=== PATIENT | female | born 1980 | race Caucasian/White ===

== ENCOUNTER 2019-06-11 22:00 | Emergency (ER) | payer OTHER ==
[2019-06-11 22:19] VITALS: BP 117/68; PULSE 98; TEMP 97.8
[2019-06-11] MEDS ORDERED: SODIUM CHLORIDE 0.9% 1000 ML INFUS.BAG IV ONE (22:46)
[2019-06-11] MEDS ORDERED: FAMOTIDINE 20 MG/50 ML IVPB 20 MG/50 ML MG IVPB ONE ×2 (22:46→23:28)
[2019-06-11] MEDS ORDERED: ACETAMINOPHEN 1000 MG/100 ML VIAL (NON FORMULARY) IVPB ONE (22:46)
--- NOTE | 2019-06-11 22:50 | PDOC ---
Attending Attestation - Resident Resident Name: Douglas Magaña - ED Attending Attestation I have performed the following: I have examined & evaluated the patient, The case was reviewed & discussed with the resident, I agree w/resident's findings & plan - HPI HPI: 06/11/19 22:51 Pt comes with diffuse abd pain 06/11/19 23:22 Pt comes with 2 days of abd pin and feeling unwell. She says that all she ate was soup today. She has no fever and no ill contacts and no nausea and no vomiting and no dysuria, no diarrhea She has no fam hx of GB disease. She has 2 children. LMP was a couple weeks back - Physicial Exam PE: 06/11/19 23:20 Afebrile VSS HEENT ncat normal Heart RRR Lungs CTAb abd soft NT ND +bs no flank pain Neuro exam - Medical Decision Making 06/11/19 23:27 Labs and urine and sono and reeval. 06/11/19 23:46 UA normal WBC normal 06/12/19 01:12 Patient Name: FREDY DARLING THIS IS A PRELIMINARY REPORT FROM [facility] DATE OF SERVICE: 2019-06-11 23:44:07 IMAGES: 46 EXAM: ABDOMEN US -LIMITED HISTORY: 38-year-old female right upper quadrant abdominal pain positive Ayala sign COMPARISON: None. FINDINGS: No cholelithiasis or cholecystitis. Mild 17.9 cm hepatomegaly and mild coarse increased echogenicity in liver parenchyma consistent with mild steatosis. Common bile duct has a normal diameter of 5 mm. Pancreatic head appears unremarkable. Pancreatic tail is obscured by bowel gas. No right kidney nephrolithiasis or hydronephrosis. The aorta and inferior vena cava and main portal pain are patent. IMPRESSION: Mild hepatomegaly and steatosis. No cholelithiasis or cholecystitis. No right kidney nephrolithiasis or hydronephrosis 06/16/19 22:33 CBC, CMP, UA, U/S WNL. Pt states she feels better and has nontender abd exam. Will d/c with PCP f/u.
[2019-06-11 22:58] LABS: PH,URINE 5.5 (5.0-8.0); URINE APPEARANCE CLEAR; URINE BILIRUBIN NEGATIVE (NEGATIVE); URINE COLOR YELLOW; URINE GLUCOSE (UA) NEGATIVE (NEGATIVE); URINE KETONE NEGATIVE (NEGATIVE); URINE LEUK ESTERASE NEGATIVE (NEGATIVE); URINE NITRITE NEGATIVE (NEGATIVE); URINE PROTEIN NEGATIVE (NEGATIVE); URINE UROBILINOGEN 0.2 mg/dL (0.2-1.0)
[2019-06-11] MEDS ORDERED: ACETAMINOPHEN INJECTION 100 ML IVPB ONE (23:01)
--- NOTE | 2019-06-11 23:03 | PDOC ---
History of Present Illness <Adali Rollins - Last Filed: 06/12/19 01:14> - General History Source: Patient Exam Limitations: Language Barrier (Checkering Machine [employer]er [id number]) - History of Present Illness Initial Comments: 06/11/19 22:48 38F with no PMH who presents to the ER with complaints of abdominal pain. The patient states that she's had 2 days of intermittent epigastric pain which is "strong" in quality, radiates diffusely throughout her abdomen, and is not associated with foods or positioning. She denies nausea, vomiting, fever, chills , CP, SOB, dysuria, hematuria, flank pain. She states she's had a and is on control now. She admits to 3 bouts of diarrhea but no recent abx and no diarrhea today. <Douglas Magaña - Last Filed: 06/12/19 01:27> - General Chief Complaint: Pain Stated Complaint: ABD PAIN Time Seen by Provider: 06/11/19 22:30 Past History <Adali Rollins - Last Filed: 06/12/19 01:14> - Past Medical History Asthma: No Cancer: No Cardiac Disorders: No COPD: No CHF: No Diabetes: No HTN: No Seizures: No Thyroid Disease: No - Psycho Social/Smoking Cessation Hx Smoking History: Never smoked Have you smoked in the past 12 months: No Information on smoking cessation initiated: No Hx Alcohol Use: No Drug/Substance Use Hx: No Hx Substance Use Treatment: No <Douglas Magaña - Last Filed: 06/12/19 01:27> - Past Medical History Allergies/Adverse Reactions: Allergies Allergy/AdvReac Type Severity Reaction Status Date / Time No Known Allergies Allergy Verified 06/11/19 22:19 Home Medications: Ambulatory Orders NK [No Known Home Medication] 06/11/19 Review of Systems - Review of Systems Able to Perform ROS?: Yes Comments:: 06/11/19 23:25 GENERAL/CONSTITUTIONAL: No fever or chills. No weakness. HEAD, EYES, EARS, NOSE AND THROAT: No change in vision. No ear pain or discharge. No sore throat. CARDIOVASCULAR: No chest pain, palpitations, or lightheadedness. RESPIRATORY: No cough, wheezing, shortness of breath, or hemoptysis. GASTROINTESTINAL: + for abdominal pain. No nausea, vomiting, diarrhea, or constipation. GENITOURINARY: No dysuria, frequency, hematuria, or change in urination. MUSCULOSKELETAL: No joint or muscle swelling or pain. No neck or back pain. SKIN: No rash or lesions. NEUROLOGIC: No headache, numbness, tingling, focal weakness, loss of consciousness, or change in strength/sensation. Is the patient limited Dutch proficient: No <Douglas Magaña - Last Filed: 06/12/19 01:27> *Physical Exam - Vital Signs Last Vital Signs Temp Pulse Resp BP Pulse Ox 97.8 F 98 H 18 117/68 100 06/11/19 22:13 06/11/19 22:13 06/11/19 22:13 06/11/19 22:13 06/11/19 22:13 <RollinsAdali - Last Filed: 06/12/19 01:14> - Vital Signs Last Vital Signs Temp Pulse Resp BP Pulse Ox 97.8 F 98 H 18 117/68 100 06/11/19 22:13 06/11/19 22:13 06/11/19 22:13 06/11/19 22:13 06/11/19 22:13 - Physical Exam 06/11/19 23:25 GENERAL: Well developed, well nourished. Awake and alert. No acute distress. HEENT: Normocephalic, atraumatic. Hearing grossly normal. Moist mucous membranes. PERRLA, EOMI. No conjunctival pallor. Sclera are non-icteric. NECK: Supple. Full ROM. No JVD. CARDIOVASCULAR: Regular rate and rhythm. No murmurs, rubs, or gallops. PULMONARY: No evidence of respiratory distress. Lungs clear to auscultation bilaterally. No wheezing, rales, or rhonchi. ABDOMINAL: Soft. TTP in epigastrium. + Ayala's sign. Non-distended. No rebound or guarding. GENITOURINARY: No CVA tenderness bilaterally. MUSCULOSKELETAL: Normal range of motion at all joints. No bony deformities or tenderness. EXTREMITIES: No cyanosis. No clubbing. No edema. No calf tenderness or swelling. SKIN: Warm and dry. Normal capillary refill. No rashes. No jaundice. NEUROLOGICAL: Alert, awake, appropriate. Cranial nerves 2-12 grossly intact. Normal speech. Gait is normal without ataxia. PSYCHIATRIC: Cooperative. Good eye contact. Appropriate mood and affect. <Douglas Magaña - Last Filed: 06/12/19 01:27> ED Treatment Course - LABORATORY CBC & Chemistry Diagram: 06/11/19 22:50 06/11/19 22:50 - ADDITIONAL ORDERS Additional order review: Laboratory Results 06/11/19 06/11/19 06/11/19 22:50 22:50 22:50 PT with INR INR Sodium Potassium Chloride Carbon Dioxide Anion Gap BUN Creatinine Est GFR (CKD-EPI)AfAm Est GFR (CKD-EPI)NonAf Random Glucose Calcium Total Bilirubin AST ALT Alkaline Phosphatase Total Protein Albumin Lipase Urine Color Yellow Urine Appearance Clear Urine pH 5.5 Ur Specific Pound 1.006 L Urine Protein Negative Urine Glucose (UA) Negative Urine Ketones Negative Urine Blood Negative Urine Nitrite Negative Urine Bilirubin Negative Urine Urobilinogen 0.2 Ur Leukocyte Esterase Negative Urine HCG, Qual Negative Blood Type O POSITIVE Antibody Screen Negative 06/11/19 06/11/19 22:50 22:50 PT with INR 13.10 H INR 1.11 H Sodium 139 Potassium 3.8 Chloride 109 H Carbon Dioxide 22 Anion Gap 8 BUN 6.4 L Creatinine 0.7 Est GFR (CKD-EPI)AfAm 127.39 Est GFR (CKD-EPI)NonAf 109.91 Random Glucose 133 H Calcium 9.0 Total Bilirubin 0.4 AST 21 ALT 30 Alkaline Phosphatase 83 Total Protein 7.9 Albumin 3.6 Lipase 96 Urine Color Urine Appearance Urine pH Ur Specific Pound Urine Protein Urine Glucose (UA) Urine Ketones Urine Blood Urine Nitrite Urine Bilirubin Urine Urobilinogen Ur Leukocyte Esterase Urine HCG, Qual Blood Type Antibody Screen 06/11/19 22:50 RBC 5.32 H MCV 74.8 L MCHC 32.5 RDW 18.0 H MPV 9.7 Neutrophils % 81.4 Lymphocytes % 10.3 D Monocytes % 7.0 Eosinophils % 1.1 Basophils % 0.2 - Medications Given in the ED: ED Medications Discontinued Medications Generic Name Dose Route Start Last Admin Trade Name Freq PRN Reason Stop Dose Admin Acetaminophen 1,000 mg 06/11/19 22:46 06/11/19 23:05 Ofirmev Injection - IVPB 06/11/19 22:47 1,000 mg ONCE ONE Administration Famotidine/Sodium Chloride 20 mg in 50 mls @ 100 mls/hr 06/11/19 22:46 23:29 Pepcid 20 Mg Premixed Ivpb - IVPB 06/11/19 23:15 100 mls/hr ONCE ONE Administration Sodium Chloride 1,000 ml 06/11/19 22:46 06/11/19 23:05 Normal Saline - IV 06/11/19 22:47 1,000 ml ONCE ONE Administration <Adali Rollins - Last Filed: 06/12/19 01:14> - LABORATORY CBC & Chemistry Diagram: 06/11/19 22:50 06/11/19 22:50 - RADIOLOGY Radiology Studies Ordered: Category Date Time Status ABDOMEN US -LIMITED [US] Stat Ultrasound 06/11/19 22:46 Ordered <Douglas Magaña - Last Filed: 06/12/19 01:27> Medical Decision Making - Medical Decision Making 06/11/19 23:26 38F with no PMH who presents with epigastric and RUQ pain that started 2 days ago with a + ayala's sign concerning for cholecystitis vs PUD vs gastritis. Will obtain labs including upreg and UA. Pt denies EtOH and takes control. Will give IV pain control and reassess. 06/12/19 01:26 CBC, CMP, UA, U/S WNL. Pt states she feels better and has nontender abd exam. Will d/c with PCP f/u. <Douglas Magaña - Last Filed: 06/12/19 01:27> Discharge - Discharge Information Problems reviewed: Yes <Adali Rollins - Last Filed: 06/12/19 01:14> - Discharge Information Problems reviewed: Yes - Admission No <Douglas Magaña - Last Filed: 06/12/19 01:27> - Discharge Information Clinical Impression/Diagnosis: Fatty liver Condition: Stable Disposition: HOME - Follow up/Referral Referrals: Ashwini Gallagher [Primary Care Provider] - - Patient Discharge Instructions Patient Printed Discharge Instructions: Eating a Diet Rich in Fruits and Vegetables, Nonalcoholic Fatty Liver Disease Additional Instructions: Your ER visit is not complete until your follow up with your primary care physician. Please follow up with your primary care physician in 1-2 days. Please return to the ER if you have any signs or symptoms of chest pain, shortness of breath, uncontrollable fever, chills, nausea, vomiting, numbness, tingling, or weakness in any part of your body, changes in vision, or slurred speech. Please take your medications as prescribed. Please return to the ER if symptoms persist, worsen, or new symptoms arise. Huerta visita a la lynda de emergencias no est completa hasta huerta seguimiento con huerta mdico de atencin primaria. Leticia un seguimiento con huerta mdico de atencin primaria en 1-2 summers. Regrese a la lynda de emergencias si tiene signos o sntomas de dolor en el pecho , falta de aliento, fiebre incontrolable, escalofros, nuseas, vmitos, entumecimiento, hormigueo o debilidad en alguna parte de huerta cuerpo, cambios en la visin o dificultad para hablar. Por favor tome grace medicamentos segn lo prescrito. Regrese a la lynda de emergencias si los sntomas persisten, empeoran o surgen nuevos sntomas. Print Language: JORDANIAN - Post Discharge Activity
[2019-06-11 23:05] LABS: BASO % 0.2 % (0-2.0); EOS % 1.1 % (0-4.5); HEMATOCRIT 39.8 % (32.4-45.2); LYMPH % 10.3 % (8-40); MCH 24.3 pg (25.7-33.7); MCHC 32.5 g/dl (32.0-36.0); MEAN CELL VOLUME 74.8 fl (80-96); MEAN PLT VOLUME 9.7 fl (7.5-11.1); NEUT % 81.4 % (42.8-82.8); PLATELET COUNT 274 K/MM3 (134-434); RBC 5.32 M/mm3 (3.60-5.2); WHITE BLOOD COUNT 10.6 K/mm3 (4.0-10.0)
[2019-06-11 23:21] LABS: INR 1.11 (0.83-1.09); PROTHROMBIN TIME (PATIENT) 13.1 SEC (9.7-13.0)
[2019-06-11 23:52] LABS: ALBUMIN 3.6 g/dl (3.4-5.0); BILIRUBIN,TOTAL 0.4 mg/dL (0.2-1); BLOOD UREA NITROGEN 6.4 mg/dL (7-18); CREATININE 0.7 mg/dL (0.55-1.3); POTASSIUM 3.8 mmol/L (3.5-5.1); TOT PROT 7.9 g/dl (6.4-8.2)
== END 2019-06-12 01:38 | disposition home or self-care (01) ==
LOC: JER 22:00
PROC: 3E033GC Introduction of Other Therapeutic Substance into Peripheral Vein, Percutaneous Approach (ICD-10-PCS; principal; 2019-06-11)
PROC: 3E033NZ Introduction of Analgesics, Hypnotics, Sedatives into Peripheral Vein, Percutaneous Approach (ICD-10-PCS; 2019-06-11)
DX: K76.0 Fatty (change of) liver, not elsewhere classified (principal)
CPT/HCPCS: 36415; 76705-TC; 80053; 81003; 83690; 84703; 85025; 85610; 86850; 86900; 86901; 87086; 96365; 96375; 99285-25; J0131; J7030

== ENCOUNTER 2022-11-10 10:34 | Inpatient (IN) | payer OTHER ==
[2022-11-10 11:34] LABS: BASO % 0.4 % (0-2.0); EOS % 0.9 % (0-4.5); HEMATOCRIT 41.9 % (32.4-45.2); HEMOGLOBIN 13.6 GM/dL (10.7-15.3); LYMPH % 12.3 % (8-40); MCH 27.8 pg (25.7-33.7); MCHC 32.4 g/dl (32.0-36.0); MEAN CELL VOLUME 85.6 fl (80-96); MEAN PLT VOLUME 11.4 fl (7.5-11.1); MONO % 7.3 % (3.8-10.2); NEUT % 79.1 % (42.8-82.8); PLATELET COUNT 134 10^3/uL (134-434); RBC 4.89 M/mm3 (3.60-5.2); WHITE BLOOD COUNT 8.5 K/mm3 (4.0-10.0)
[2022-11-10 11:38] LABS: BLOOD UREA NITROGEN 8.5 mg/dL (7-18); CALCIUM 8.6 mg/dL (8.5-10.1)
[2022-11-10 11:42] LABS: CREATININE 0.6 mg/dL (0.55-1.3)
[2022-11-10 11:47] LABS: INR 0.99 (0.83-1.09); PROTHROMBIN TIME (PATIENT) 11.5 SEC (9.7-13.0)
[2022-11-10 11:50] LABS: ACTIVATED PTT 30.7 SECONDS (25.2-36.5)
[2022-11-10] MEDS ORDERED: CITRIC ACID/SODIUM CITRATE 30 ML UNIT-DOSE CUP PO ONE (12:29)
[2022-11-10] MEDS ORDERED: ELECTROLYTE-148 SOLN 1,000 ML IV SCH (12:30)
[2022-11-10 12:32] LABS: HIV INTERPRETATION NEGATIVE (NEGATIVE)
[2022-11-10 12:38] VITALS: BMI 33.1
[2022-11-10] MEDS ORDERED: METOCLOPRAMIDE HCL INJECTION 10 MG/2 ML VIAL ONE (12:59)
[2022-11-10] MEDS ORDERED: DEXAMETHASONE SOD PHOSPHATE 4 MG/1 ML VIAL ONE (12:59)
[2022-11-10] MEDS ORDERED: FENTANYL CITRATE/PF 50 MCG/ML VIAL ONE (12:59)
[2022-11-10] MEDS ORDERED: morphine SULFATE/PF 1 MG/2 ML (2cc Syringe - QUVA) ONE (12:59)
[2022-11-10] MEDS ORDERED: ceFAZolin SODIUM 1 GM VIAL ONE (12:59)
[2022-11-10] MEDS ORDERED: ONDANSETRON 4 MG/2 ML VIAL ONE (12:59)
[2022-11-10] MEDS ORDERED: OXYTOCIN 10 UNITS/ML VIAL ONE ×2 (13:09)
[2022-11-10] MEDS ORDERED: LIGASURE IMPACT TP ONE (13:44)
[2022-11-10] MEDS ORDERED: ONDANSETRON 4 MG/2 ML VIAL IVPB PRN (15:35)
[2022-11-10] MEDS ORDERED: IBUPROFEN 800 MG/8 ML IJ IVPB PRN (15:35)
[2022-11-10] MEDS ORDERED: SENNOSIDES/DOCUSATE COMBO (SENNA PLUS) TABLET (UD) PO PRN (15:35)
[2022-11-10] MEDS ORDERED: OXYTOCIN 20 UNITS in 0.9% NS 20 UNIT/1,000 ML INFUS.BAG IV SCH (15:45)
[2022-11-10 16:33] LABS: CORD BASE EXCESS -3.8 mmol/L (0-2); CORD HCO3 22.2 mmHg (20-29); CORD HCO3 22.7 mmHg (20-29); CORD PCO2 46.6 mmHg (30-78); CORD PCO2 56.7 mmHg (30-78); CORD pH 7.211 (7.14-7.44); CORD pH 7.306 (7.14-7.44)
[2022-11-10] MEDS ORDERED: NOREPINEPHRINE BITARTRATE 4 MG/4 ML ML IV ONE (16:50)
[2022-11-10] MEDS ORDERED: OXYTOCIN 20 UNITS in 0.9% NS 20 UNIT/1,000 ML INFUS.BAG IV ONE (17:11)
[2022-11-10] MEDS: ACETAMINOPHEN 1000 MG/100 ML BAG IVPB SCH ×2 (18:03→21:26)
[2022-11-10] MEDS: HEPARIN NA (PORCINE) 5,000 UNITS/ML 1ML VIAL SQ SCH (21:25)
[2022-11-11] MEDS: ACETAMINOPHEN 1000 MG/100 ML BAG IVPB SCH ×2 (03:04→09:35)
[2022-11-11 07:44] LABS: BASO % 0.3 % (0-2.0); EOS % 0.4 % (0-4.5); HEMATOCRIT 37.2 % (32.4-45.2); HEMOGLOBIN 12.1 GM/dL (10.7-15.3); LYMPH % 8.8 % (8-40); MCH 28.2 pg (25.7-33.7); MCHC 32.7 g/dl (32.0-36.0); MEAN CELL VOLUME 86.1 fl (80-96); MEAN PLT VOLUME 11.5 fl (7.5-11.1); MONO % 6.6 % (3.8-10.2); NEUT % 83.9 % (42.8-82.8); PLATELET COUNT 110 10^3/uL (134-434); RBC 4.31 M/mm3 (3.60-5.2); RDW 17.9 % (11.6-15.6); WHITE BLOOD COUNT 8.4 K/mm3 (4.0-10.0)
[2022-11-11] MEDS: HEPARIN NA (PORCINE) 5,000 UNITS/ML 1ML VIAL SQ SCH ×2 (09:35→21:30)
[2022-11-11] MEDS ORDERED: oxyCODONE HCL 5 MG TABLET PO PRN (10:00)
[2022-11-11] MEDS: SIMETHICONE 80 MG TAB.CHEW (FP) PO PRN ×2 (15:25→19:11)
[2022-11-11] MEDS: IBUPROFEN 600 MG TABLET (FP) PO PRN (15:25)
[2022-11-11] MEDS ORDERED: BISACODYL 10 MG SUPP.RECT RC PRN (15:35)
[2022-11-11] MEDS: ACETAMINOPHEN 500 MG TABLET (FP) PO PRN (19:11)
[2022-11-12] MEDS: SIMETHICONE 80 MG TAB.CHEW (FP) PO PRN ×2 (00:30→09:23)
[2022-11-12] MEDS: IBUPROFEN 600 MG TABLET (FP) PO PRN (00:30)
[2022-11-12 01:01] VITALS: RESP 18
[2022-11-12] MEDS: HEPARIN NA (PORCINE) 5,000 UNITS/ML 1ML VIAL SQ SCH (09:15)
[2022-11-12] MEDS: ACETAMINOPHEN 500 MG TABLET (FP) PO PRN (09:23)
[2022-11-12 10:20] VITALS: BP 135/76; PULSE 47; TEMP 97.7
== END 2022-11-12 12:50 | disposition home or self-care (01) | DRG 540 ==
LOC: JLDR 10:34 → J3W 17:41
PROVIDERS: ADMIT Family Medicine; ATTEND Family Medicine
PROC: 10D00Z1 Extraction of Products of Conception, Low, Open Approach (ICD-10-PCS; principal; 2022-11-10)
PROC: 0UT70ZZ Resection of Bilateral Fallopian Tubes, Open Approach (ICD-10-PCS; 2022-11-10)
DX: O34.219 Maternal care for unspecified type scar from previous cesarean delivery (principal); Z3A.39 39 weeks gestation of pregnancy; Z37.0 Single live birth; Z30.2 Encounter for sterilization; O90.89 Other complications of the puerperium, not elsewhere classified; R00.1 Bradycardia, unspecified
CPT/HCPCS: 36415; 36600; 80048; 82803; 85025; 85610; 85730; 86780; 86850; 86900; 86901; 87389; 88302-TC; 88307-TC; 93005; 93010; J1644